=== PATIENT | female | born 1990 | race Two or more races ===

== ENCOUNTER 2019-02-01 11:03 | Outpatient (CLI) | payer OTHER | END 2019-02-01 11:19 | disposition home or self-care (01) | LOC: LAB 11:03 | DX: J11.1 Influenza due to unidentified influenza virus with other respiratory manifestations (principal); A49.3 Mycoplasma infection, unspecified site ==

== ENCOUNTER 2022-09-13 17:28 | Emergency (ER) | payer OTHER ==
[~2022-09-13] VITALS: Ht 157.5 cm; Wt 149.7 kg
== END 2022-09-13 20:06 | disposition home or self-care (01) ==
LOC: ER 17:28
DX: R07.89 Other chest pain (principal); Z91.018 Allergy to other foods; Z91.013 Allergy to seafood

== ENCOUNTER 2022-12-31 19:02 | Emergency (ER) | payer OTHER ==
[~2022-12-31] VITALS: Ht 157.5 cm; Wt 147.4 kg
[2022-12-31] MEDS ORDERED: GLUMETZA1000 MG (19:16)
[2022-12-31] MEDS ORDERED: WELLBUTRIN SR100 MG (19:16)
== END 2022-12-31 20:45 | disposition home or self-care (01) ==
LOC: ER 19:02
DX: B34.9 Viral infection, unspecified (principal); Z20.822 Contact with and (suspected) exposure to COVID-19; Z91.018 Allergy to other foods; Z91.013 Allergy to seafood

== ENCOUNTER 2023-05-14 19:01 | Emergency (ER) | payer OTHER ==
[~2023-05-14] VITALS: Ht 157.5 cm; Wt 149.7 kg
[~2023-05-14 19:01] MED LIST: GLUMETZA1000 MG; WELLBUTRIN SR100 MG
[2023-05-14] MEDS ORDERED: DICLOFENAC SODI75 MG PO (22:37)
== END 2023-05-14 22:41 | disposition home or self-care (01) ==
LOC: ER 19:01
DX: M12.511 Traumatic arthropathy, right shoulder (principal); Z91.018 Allergy to other foods; Z91.013 Allergy to seafood; E11.9 Type 2 diabetes mellitus without complications; Z79.84 Long term (current) use of oral hypoglycemic drugs

== ENCOUNTER 2023-10-16 17:06 | Emergency (ER) | payer OTHER ==
[~2023-10-16] VITALS: Ht 157.5 cm; Wt 154.2 kg
[~2023-10-16 17:06] MED LIST changes: +DICLOFENAC SODI75 MG PO
[2023-10-16 21:20] LABS: ABG PH 7.465 (7.35-7.45); ABG PO2 91.9 mmHg (80-100); ABG pCO2 38.5 mmHg (35-45)
[2023-10-16 21:21] LABS: SaO2 97.1 %; Tco2 28.2 mmol/l; allen test SATISFACTORY; o2 21 %; puncture site RADIAL RIGHT
[2023-10-16 21:54] LABS: HEMOGLOBIN 14.6 g/dL (12.0-15.00); MEAN CELL VOLUME 89.5 fL (80.00-100.00); MEAN CORPUSCULAR HEMOGLOBIN 30.4 pg (27.00-32.0); MEAN CORPUSCULAR HGB CONC 33.9 g/dl (32.0-36.0); PLATELET COUNT 253 K/uL (150-450); RED BLOOD COUNT 4.81 M/uL (4.00-6.00); RED CELL DISTRIBUTION WIDTH 14.3 % (11.5-14.5)
[2023-10-16] MEDS ORDERED: OSEL75CA PO (23:13)
[2023-10-16] MEDS ORDERED: XOPENEX CO1.25 MG/0. IH (23:13)
[2023-10-16] MEDS ORDERED: BUDESONIDE0.5 MG/2 M IH (23:13)
== END 2023-10-17 00:51 | disposition home or self-care (01) ==
LOC: ER 17:07
PROVIDERS: Nurse Practitioner Family
DX: J10.1 Influenza due to other identified influenza virus with other respiratory manifestations (principal); Z91.018 Allergy to other foods; Z91.013 Allergy to seafood; Z20.822 Contact with and (suspected) exposure to COVID-19